=== PATIENT | male | born 1965 | race Caucasian/White ===

== ENCOUNTER 2016-05-04 07:04 | Emergency (ER) | payer MEDICAID, OTHER ==
[~2016-05-04] VITALS: Ht 170.2 cm; Wt 81.5 kg
[~2016-05-04 07:04] MED LIST: OLAN10TA3 PO
[2016-05-04 10:23] VITALS: BP 132/82
== END 2016-05-04 10:49 | disposition home or self-care (01) ==
LOC: EMS 07:20
DX: L02.512 Cutaneous abscess of left hand (principal); L03.114 Cellulitis of left upper limb; E11.9 Type 2 diabetes mellitus without complications
CPT/HCPCS: 99284